=== PATIENT | male | born 1950 | race Caucasian/White ===

== ENCOUNTER 2016-11-01 21:08 | Emergency (ER) | payer OTHER, MEDICARE ==
[~2016-11-01] VITALS: Ht 185.4 cm; Wt 93.0 kg
[~2016-11-01 21:08] MED LIST: ALLOPURINOL300 MG PO; ASPIR 8181 MG PO; CARVEDILOL3.125 MG PO; CRESTOR 5MG5 MG PO; NEPHRO-VITE RX1 TAB PO
[2016-11-01] MEDS ORDERED: ALLOPURINOL300 M1 PO (21:26)
[2016-11-01] MEDS ORDERED: CARVEDILOL3.125 M1 PO (21:27)
[2016-11-01] MEDS ORDERED: ZOLPIDEM TARTRAT5 M1 PO (21:27)
[2016-11-01] MEDS ORDERED: CRESTOR5 M1 PO (21:28)
[2016-11-01] MEDS ORDERED: ASPIRIN81 M4 PO (21:28)
[2016-11-01] MEDS ORDERED: NEPHRO-VITE RX1 EACH PO (21:29)
--- NOTE | 2016-11-01 21:31 | ED CARDIAC/CP/PALPITATIONS ---
History of Present Illness General Chief Complaint: Chest Pain Stated Complaint: HIGH BP/SWEATS/CHILLS/CHEST PRESSURE X 1 HOUR Source: patient, family, old records Exam Limitations: no limitations Vital Signs & Intake/Output Vital Signs & Intake/Output Vital Signs Date Time Temp Pulse Resp B/P B/P Pulse O2 O2 Flow FiO2 Mean Ox Delivery Rate 11/02 0122 97.6 60 18 138/86 98 Room Air 11/01 2309 97.4 59 17 142/88 97 Room Air 11/02 2235 97.8 59 18 148/78 99 Room Air 11/01 2128 97 Room Air 11/01 2125 182/92 11/01 2122 98.2 67 18 195/98 98 Room Air ED Intake and Output 11/02 0000 11/01 1200 Intake Total Output Total Balance Patient 205 lb Weight Allergies Uncoded Allergies: DUST/DUST MITES (DYSPNEA, SNEEZING 09/28/14) Reconcile Medications Allopurinol 300 MG TABLET 1 TAB PO DAILY GOUT (Reported) Aspirin (Aspirin*) 81 MG TAB.CHEW 1 TAB PO DAILY HEART HEALTH (Reported) Carvedilol 3.125 MG TABLET 1 TAB PO BID HTN (Reported) Famotidine (Pepcid) 20 MG TABLET 1 TAB PO BID gerd Metoclopramide HCl (Reglan) 10 MG TABLET 1 TAB PO 4 TIMES/DAY PRN gerd 30 minutes before meals and bedtime Rosuvastatin Calcium (Crestor) 5 MG TABLET 1 TAB PO DAILY HIGH CHOLESTEROL ( Reported) Vit B Cmplx 3/FA/Vit C/Biotin (Nephro-Nick Rx Tablet) 1 MG-60 MG-300 MCG TABLET 1 TAB PO DAILY VITAMIN SUPPLEMENT (Reported) Zolpidem Tartrate 5 MG TABLET 1 TAB PO QPMP INSOMNIA (Reported) Core Measure Meds Pre-Hospital aspirin Triage Note: TRIAGE: PATIENT TO ER FROM HOME REPORTS HX DOUBLE BYPASS AND HOME BP 240/140, ONSET L CHEST PAIN X 1 HOUR. REPORTS STOMACH PAIN, "INDIGESTION/ GERD AFTER EATING THIS WEEK." REPORTS PAIN PRESSURE IN NATURE, THOUGH RESOLVED AT THIS TIME PER PATIENT. ALSO REPORTING "LITTLE TINGLING ALL OVER AND CHILLS." Triage Nurses Notes Reviewed? yes Onset: Just prior to arrival Duration: hour(s):, better, constant Timing: recent history Quality/Severity: severe, pressure Location: central Radiation: no radiation Activities at Onset: rest Prior Chest Pain/Card Workup: cardiac cath, echocardiography, stress test Modifying Factors: Improves With: rest. Nitro Today/Relief: no nitro taken today Aspirin Today: 325 mg x 1, provided at home Associated Symptoms: abdominal pain, diaphoresis, dizziness, heartburn, nausea/ vomiting, weakness HPI: 1 week prior to admission patient tripped and fell in the garage landing on his left chest with his fist underneath. He complains of continued pain at the site. 1 day prior to admission patient complains of episodic heartburn relieved with Rolaids. One hour prior to admission patient complained of left-sided chest pain described as pressure associated with dizziness nausea heartburn that has now improved. He denies fever chills vomiting diarrhea shortness of breath headache dysuria rash bleeding. Past History Travel History Traveled to [place] past 21 day No Medical History Any Pertinent Medical History? see below for history Neurological: NONE EENT: NONE Cardiovascular: CAD, hypertension, hyperlipidemia Respiratory: NONE Gastrointestinal: GERD Hepatic: NONE Renal: NONE Musculoskeletal: gout, spinal stenosis Psychiatric: NONE Endocrine: NONE Blood Disorders: NONE Cancer(s): NONE SHELTER CASE MANAGER/Reproductive: NONE Pneumonia Vaccine: 08/09/11 Influenza Vaccine: 03/10/14 Surgical History Surgical History: CABG Psychosocial History What is your primary language [place] Citizen Tobacco Use: Refused to answer Family History Hx Contributory? No Review of Systems Review of Systems Constitutional: Reports: see HPI, malaise. EENTM: Reports: no symptoms. Respiratory: Reports: no symptoms. Cardiovascular: Reports: see HPI, chest pain. GI: Reports: see HPI, abdominal pain, nausea. Genitourinary: Reports: no symptoms. Musculoskeletal: Reports: no symptoms. Skin: Reports: no symptoms. Neurological/Psychological: Reports: no symptoms. Hematologic/Endocrine: Reports: no symptoms. Immunologic/Allergic: Reports: no symptoms. All Other Systems: Reviewed and Negative Physical Exam Physical Exam General Appearance: well developed/nourished, alert, awake, anxious, moderate distress Head: atraumatic, normal appearance Eyes: Bilateral: normal appearance, PERRL, EOMI. Ears, Nose, Throat: normal pharynx, normal ENT inspection, hearing grossly normal, moist mucus membranes Neck: normal inspection, supple, full range of motion, no midline tenderness Respiratory: normal breath sounds, no respiratory distress, quiet respiration, lungs clear, left chest wall tenderness Cardiovascular: regular rate/rhythm, normal peripheral pulses, norml femoral pulses equa Peripheral Pulses: 4+ carotid (R), 4+ carotid (L) Gastrointestinal: soft, non-tender, no organomegaly, abnormal bowel sounds ( hyperactive) Back: normal inspection, normal range of motion, no vertebral tenderness Extremities: normal inspection, normal capillary refill, normal range of motion, no edema Neurologic/Psych: no motor/sensory deficits, awake, alert, oriented x 3, normal gait, normal mood/affect, 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 Skin: intact, normal color, warm/dry Lymphatic: no anterior cervical kathryn Core Measures ACS in differential dx? Yes ASA ordered for poss ACS? No-ACS ruled out, No-other contraindication (ASA at home) Severe Sepsis Present: No Septic Shock Present: No Progress Differential Diagnosis: AMI, costochondritis, hyperkalemia, musculoskeletal pain , pancreatitis, pneumonia Plan of Care: Orders Procedure Date/time Status TROPONIN LEVEL 11/020 Complete TROPONIN LEVEL 11/02 2123 Complete MAGNESIUM 11/02 2123 Complete LIPASE 11/02 2123 Complete COMPREHENSIVE METABOLIC PANEL 11/02 2123 Complete CBC WITHOUT DIFFERENTIAL 11/02 2123 Complete EKG 11/01 2110 Active Laboratory Tests 11/02/16 0028: Troponin I < 0.01 11/01/162130: Anion Gap 10, Estimated GFR > 60, BUN/Creatinine Ratio 17.0, Glucose 110 H, Calcium 10.2, Magnesium 1.5 L, Total Bilirubin 0.9, AST 38, ALT 58, Alkaline Phosphatase 60, Troponin I < 0.01, Total Protein 7.5, Albumin 4.6, Globulin 2.9, Albumin/Globulin Ratio 1.6, Lipase 112, CBC w Diff NO MAN DIFF REQ, RBC 4.16 L, MCV 97.0 H, MCH 33.3 H, RDW 13.2, MPV 7.7, Gran % 59.9, Lymphocytes % 24.2, Monocytes % 10.3 H, Eosinophils % 4.8, Basophils % 0.8, Absolute Granulocytes 3.8, Absolute Lymphocytes 1.6, Absolute Monocytes 0.7 H, Absolute Eosinophils 0.3, Absolute Basophils 0.1, PUBS MCHC 34.3 Diagnostic Imaging: Viewed by Me: Radiology Read. Discussed w/RAD: Radiology Read. CXR Impression: no acute abnormality Initial ED EKG: normal axis, normal intervals, normal p-waves, normal QRS complex, normal sinus rhythm, nonspecific ST T wave chg Prior EKG: unchanged Rhythm Strip: normal sinus rhythm Departure Departure Time of Disposition: 110 Disposition: HOME OR SELF CARE Condition: Stable Clinical Impression Primary Impression: Chest pain syndrome Secondary Impressions: GERD (gastroesophageal reflux disease) Referrals: WARREN SANCHEZ,DANIEL Snyder (PCP/Family) Departure Forms: Customer Survey General Discharge Information Prescriptions: Current Visit Scripts Metoclopramide HCl (Reglan) 1 TAB PO 4 TIMES/DAY PRN gerd #120 TAB 30 minutes before meals and bedtime Famotidine (Pepcid) 1 TAB PO BID #60 TAB Critical Care Note Critical Care Note Critical Care Time: non-applicable
[2016-11-01 21:42] LABS: ABSOLUTE BASOPHIL COUNT 0.1 /CUMM (0.0-0.2); ABSOLUTE EOSINOPHIL COUNT 0.3 /CUMM (0.0-0.7); ABSOLUTE GRANULOCYTE CT 3.8 /CUMM (1.4-6.5); ABSOLUTE LYMPH COUNT 1.6 /CUMM (1.2-3.4); ABSOLUTE MONOCYTE COUNT 0.7 /CUMM (0.10-0.60); BASOPHIL % 0.8 % (0.0-2.0); EOSINOPHIL % 4.8 % (0-5); GRANULOCYTE % 59.9 % (42.2-75.2); HEMATOCRIT 40.3 % (42-52); MEAN CORPUSCULAR HGB 33.3 PG (27.0-31.0); MEAN CORPUSCULAR HGB CONC 34.3 G/DL (33.0-37.0); MEAN PLATELET VOLUME 7.7 FL (7.4-10.4); PLATELET COUNT 212 /CUMM (130-400); RBC DISTRIBUTION WIDTH 13.2 % (11.5-14.5); RED BLOOD CELL CT 4.16 /CUMM (4.70-6.10); WHITE BLOOD CELL COUNT 6.4 /CUMM (4.8-10.8)
--- NOTE | 2016-11-01 22:11 | RADIOLOGY REPORT ---
EXAMINATION: XR PORTABLE CHEST CLINICAL INFORMATION: Chest pain. COMPARISON: None TECHNIQUE: Portable frontal view of the chest was obtained. FINDINGS: Cardiac leads overlie the chest. Median sternotomy wires appear intact. The lungs are well expanded. Minimal left basilar atelectasis. There is no focal consolidation, edema, or effusion. No pneumothorax. The cardiomediastinal silhouette is within normal limits. No acute osseous abnormality. Degenerative changes at the left glenohumeral joint. IMPRESSION: Minimal left basilar atelectasis. Otherwise clear lungs.
[2016-11-02] MEDS ORDERED: PEPCID20 M1 PO (01:12)
[2016-11-02] MEDS ORDERED: REGLAN10 M1 PO (01:12)
[2016-11-02 01:22] VITALS: BP 138/86
== END 2016-11-02 01:24 ==
LOC: ERH 21:08
PROVIDERS: Emergency Medicine
DX: R07.1 Chest pain on breathing (principal); K21.9 Gastro-esophageal reflux disease without esophagitis
CPT/HCPCS: 93005; 93010; 96374; 96376; J2765